=== PATIENT | male | born 1995 | race Caucasian/White ===

== ENCOUNTER 2024-04-01 20:17 | Emergency (ER) | payer OTHER ==
[2024-04-01 20:35] VITALS: RESP 18
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
[2024-04-01] MEDS: IBUPROFEN 800 MG TAB PO STA (20:56)
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
[2024-04-01 22:00] VITALS: BP 128/81; PULSE 90; TEMP 98.4
== END 2024-04-01 21:43 | disposition home or self-care (01) ==
LOC: EC 20:17
CPT/HCPCS: 71046; 99284